=== PATIENT | female | born 1965 | race Two or more races ===

== ENCOUNTER 2021-03-29 07:17 | Day surgery (SDC) | payer OTHER ==
[~2021-03-29 07:17] MED LIST: CALTRATE PO; VITAMIN D3 PO; VITAMIN D310 MCG/1 M; [UNRECOGNIZED DRUG - OTHER]
== END 2021-03-29 16:25 | disposition home or self-care (01) ==
LOC: CIR.AMB 07:17
PROVIDERS: ATTEND Orthopaedic Surgery Hand Surgery
DX: G56.01 Carpal tunnel syndrome, right upper limb (principal); Z20.822 Contact with and (suspected) exposure to COVID-19